=== PATIENT | male | born 1945 | race Caucasian/White ===

== ENCOUNTER 2019-07-07 14:25 | Outpatient (CLI) | payer MEDICARE | END 2019-07-07 14:26 | disposition home or self-care (01) | LOC: LAB 14:25 | PROVIDERS: ATTEND Urology | DX: C61 Malignant neoplasm of prostate (principal) | CPT/HCPCS: 36415; 84153 ==

== ENCOUNTER 2021-02-20 08:00 | Outpatient (CLI) | payer MEDICARE | END 2021-02-20 23:59 | disposition home or self-care (01) | LOC: LAB 08:00 | PROVIDERS: ATTEND Emergency Medicine | DX: J06.9 Acute upper respiratory infection, unspecified (principal); R50.9 Fever, unspecified; Z20.822 Contact with and (suspected) exposure to COVID-19 | CPT/HCPCS: 87275; 87276; U0004 ==